=== PATIENT | male | born 1980 | race Caucasian/White ===

== ENCOUNTER 2017-08-30 14:54 | Emergency (ER) | payer SELFPAY ==
[~2017-08-30] VITALS: Ht 177.8 cm; Wt 104.5 kg
[~2017-08-30 14:54] MED LIST: BACTRIM DS 8001 TAB PO
[2017-08-30 14:58] VITALS: BP 164/105; TEMP 98.1
[2017-08-30] MEDS ORDERED: CLEOCIN HCL300 MG PO (15:35)
[2017-08-30] MEDS ORDERED: NORCO 325 MG-51 TAB PO (15:35)
[2017-08-30 15:56] VITALS: PULSE 88
[2017-08-30] MEDS ORDERED: CLEOCIN HC150 MG/CAP PO (16:14)
== END 2017-08-30 15:57 | disposition home or self-care (01) ==
LOC: COL.ER 14:54
DX: K08.89 Other specified disorders of teeth and supporting structures (principal)